=== PATIENT | male | born 1955 ===

== ENCOUNTER 2017-02-15 16:19 | Emergency (ER) | payer OTHER ==
[2017-02-15] MEDS ORDERED: DIABETIC PILL (17:59)
[2017-02-15] MEDS ORDERED: BLOOD PRESSURE PILL (18:00)
[2017-02-15] MEDS ORDERED: CHOLESTEROL PILL (18:00)
[2017-02-15] MEDS ORDERED: ZOCOR40 M1 PO (18:10)
[2017-02-15] MEDS ORDERED: NORVASC10 M2 PO (18:10)
[2017-02-15] MEDS ORDERED: INVOKAMET XR 11 EACH (18:11)
[2017-02-15] MEDS ORDERED: BETAGAN5 M1 RIGHT EYE (18:11)
[2017-02-15] MEDS ORDERED: LATANOPROST2.5 M1 RIGHT EYE (18:12)
[2017-02-15] MEDS ORDERED: TIMOPTIC5 ML RIGHT EYE (18:12)
[2017-02-15] MEDS ORDERED: PERCOCET 5-3251 EACH PO (19:04)
== END 2017-02-15 19:17 ==
LOC: EDMED 16:19
DX: M25.461 Effusion, right knee (principal); E11.9 Type 2 diabetes mellitus without complications; I10 Essential (primary) hypertension; Z79.899 Other long term (current) drug therapy